=== PATIENT | male | born 1995 | race Caucasian/White ===

== ENCOUNTER 2019-10-13 17:12 | Inpatient (IN) | payer MEDICARE, MEDICAID ==
[~2019-10-13] VITALS: Ht 177.8 cm; Wt 98.8 kg
[2019-10-13 17:10] VITALS: BP 123/83
[~2019-10-13 17:12] MED LIST: DULO60CA7 PO; LORA-446 PO; TRAZ-175 PO
[2019-10-13] MEDS ORDERED: ENOXAPARIN 40 MG/0.4 ML SQ SCH (17:30)
[2019-10-13] MEDS ORDERED: ONDANSETRON 2MG/ML, 2ML IVPush PRN (17:30)
[2019-10-13] MEDS: SODIUM CHLORIDE 0.9% 1,000 ML IV SCH (17:51)
[2019-10-13] MEDS: ENOXAPARIN 40 MG/0.4 ML SQ SCH ×2 (17:53→17:55)
[2019-10-13 19:52] VITALS: BP_SYST 105; BP_SYST 97; BP_DIAS 65; BP_DIAS 68
[2019-10-14 00:33] VITALS: BP 114/71
[2019-10-14 00:52] LABS: AMPHETAMINE SCREEN, URINE Negative (Negative); BARBITURATE SCREEN, URINE Negative (Negative); BENZODIAZEPINE SCREEN, URINE Negative (Negative); CANNABINOID SCREEN, URINE Negative (Negative); COCAINE SCREEN, URINE Negative (Negative); METHADONE SCREEN, URINE Negative (Negative); OPIATE SCREEN, URINE Negative (Negative)
[2019-10-14 05:39] LABS: CHLORIDE 110 mmol/L (98-107)
[2019-10-14 05:44] LABS: BASOPHILS # (AUTO) 0.02 x10^3/uL (0-0.1); BASOPHILS % (AUTO) 0 % (0-1); EOSINOPHILS # (AUTO) 0.25 x10^3/uL (0-0.4); EOSINOPHILS % (AUTO) 2 % (1-7); LYMPHOCYTES # (AUTO) 2.31 x10^3/uL (1-3.4); LYMPHOCYTES % (AUTO) 22 % (22-44); MD NO; MEAN CORPUSCULAR HEMOGLOBIN 29.3 pg (27.5-34.5); MEAN CORPUSCULAR HGB CONC 34.1 g/dL (33.2-36.2); MEAN CORPUSCULAR VOLUME 85.9 fL (81-97); MEAN PLATELET VOLUME 8.8 fL (7.4-10.4); MONOCYTES # (AUTO) 1.03 x10^3/uL (0.2-0.8); MONOCYTES % (AUTO) 10 % (2-9); NEUTROPHILS # (AUTO) 6.76 x10^3/uL (1.8-6.8); NEUTROPHILS % (AUTO) 65 % (42-75); PLATELET COUNT 244 x10^3/uL (130-400); RED BLOOD COUNT 4.77 x10^6/uL (4.38-5.82); RED CELL DISTRIBUTION WIDTH 13.4 % (9.4-14.8)
[2019-10-14 05:49] LABS: ALANINE AMINOTRANSFERASE 37 U/L (12-78); ALBUMIN 3.5 g/dL (3.4-5.0); ALKALINE PHOSPHATASE 95 U/L (45-117); ANION GAP 4 mmol/L (5-15); BILIRUBIN,TOTAL 0.3 mg/dL (0.2-1.0); CALCIUM 8.8 mg/dL (8.5-10.1); CREATININE 1.48 mg/dL (0.7-1.3); TOTAL PROTEIN 6.6 g/dL (6.4-8.2)
[2019-10-14 06:45] VITALS: BP 98/59
[2019-10-14] MEDS: SODIUM CHLORIDE 0.9% 1,000 ML IV SCH ×3 (07:01→22:30)
[2019-10-14 13:30] VITALS: BP 119/72
[2019-10-14] MEDS ORDERED: TAMSULOSIN 0.4 MG CAP.ER.24H PO ONE (14:30)
[2019-10-14 22:31] VITALS: BP 124/73
[2019-10-15 01:43] VITALS: BP 125/74
[2019-10-15 06:29] LABS: BASOPHILS # (AUTO) 0.03 x10^3/uL (0-0.1); BASOPHILS % (AUTO) 0 % (0-1); EOSINOPHILS # (AUTO) 0.29 x10^3/uL (0-0.4); EOSINOPHILS % (AUTO) 4 % (1-7); LYMPHOCYTES # (AUTO) 2.22 x10^3/uL (1-3.4); LYMPHOCYTES % (AUTO) 27 % (22-44); MD NO; MEAN CORPUSCULAR HEMOGLOBIN 29.3 pg (27.5-34.5); MEAN CORPUSCULAR HGB CONC 34.1 g/dL (33.2-36.2); MEAN CORPUSCULAR VOLUME 85.9 fL (81-97); MEAN PLATELET VOLUME 8.2 fL (7.4-10.4); MONOCYTES # (AUTO) 0.84 x10^3/uL (0.2-0.8); MONOCYTES % (AUTO) 10 % (2-9); NEUTROPHILS # (AUTO) 4.99 x10^3/uL (1.8-6.8); NEUTROPHILS % (AUTO) 60 % (42-75); PLATELET COUNT 213 x10^3/uL (130-400); RED BLOOD COUNT 4.64 x10^6/uL (4.38-5.82); RED CELL DISTRIBUTION WIDTH 12.9 % (9.4-14.8)
[2019-10-15] MEDS: SODIUM CHLORIDE 0.9% 1,000 ML IV SCH ×3 (06:35→22:30)
[2019-10-15 06:39] LABS: ANION GAP 7 mmol/L (5-15); CALCIUM 8.7 mg/dL (8.5-10.1); CHLORIDE 110 mmol/L (98-107); CREATININE 1.09 mg/dL (0.7-1.3)
[2019-10-15 08:50] VITALS: BP 103/63
[2019-10-15] MEDS ORDERED: DULO60CA7 PO (11:12)
[2019-10-15] MEDS ORDERED: VENL150C PO (11:12)
[2019-10-15] MEDS ORDERED: BUPR300T49 PO (11:12)
[2019-10-15 12:15] VITALS: BP 123/70
[2019-10-15] MEDS: ENOXAPARIN 40 MG/0.4 ML SQ SCH (17:33)
[2019-10-15 19:10] VITALS: BP 132/84
[2019-10-16 00:09] VITALS: BP 125/77
[2019-10-16] MEDS: SODIUM CHLORIDE 0.9% 1,000 ML IV SCH (06:25)
[2019-10-16 08:44] VITALS: BP 126/76
[2019-10-16 14:30] VITALS: BP 122/76
[2019-10-16] MEDS: ENOXAPARIN 40 MG/0.4 ML SQ SCH (16:37)
[2019-10-16 19:08] VITALS: BP 150/90
[2019-10-17 15:25] VITALS: BP 109/64
[2019-10-17] MEDS: ENOXAPARIN 40 MG/0.4 ML SQ SCH ×2 (18:46→18:47)
[2019-10-17 20:04] VITALS: BP 136/88
[2019-10-18 01:38] VITALS: BP 106/64
[2019-10-18 08:08] VITALS: BP 122/65
== END 2019-10-18 12:00 | disposition home or self-care (01) | DRG 917 ==
LOC: 5SO 17:12 → 3N 10-15 17:45
PROVIDERS: ADMIT Internal Medicine Infectious Disease; ATTEND Internal Medicine Infectious Disease
DX: T50.912A Poisoning by multiple unspecified drugs, medicaments and biological substances, intentional self-harm, initial encounter (principal); N17.0 Acute kidney failure with tubular necrosis; F33.2 Major depressive disorder, recurrent severe without psychotic features; F43.10 Post-traumatic stress disorder, unspecified; Z88.2 Allergy status to sulfonamides; Z88.8 Allergy status to other drugs, medicaments and biological substances; Z91.013 Allergy to seafood; F14.90 Cocaine use, unspecified, uncomplicated; F17.210 Nicotine dependence, cigarettes, uncomplicated; F41.0 Panic disorder [episodic paroxysmal anxiety]; I51.7 Cardiomegaly; Z91.5 Personal history of self-harm; Y92.89 Other specified places as the place of occurrence of the external cause; T43.012A Poisoning by tricyclic antidepressants, intentional self-harm, initial encounter; T43.592A Poisoning by other antipsychotics and neuroleptics, intentional self-harm, initial encounter
CPT/HCPCS: 36415; 80048; 80053; 80307; 82140; 83735; 84100; 85025; 93005; G0378; J1650; J2405; J7030

== ENCOUNTER 2019-12-18 04:49 | Emergency (ER) | payer MEDICARE, MEDICAID ==
[~2019-12-18 04:49] MED LIST changes: +BUPR300T49 PO; +VENL150C PO
--- NOTE | 2019-12-18 05:05 | NUR ---
pt ambulates from triage to room with steady gait. pt belongings removed and pt stripped to underwear and changed into gown at this time. pt belongings placed into 1 of 1 bags and locked in secured storage. room secured for pt and staff safety at this time, with all suicide precautions in place. ELROY Warren at for pt history and assessment. pt educated on er process and poc and verbalizes understanding. pt instructed on need to void for ua/uds. pt cooperative at this time and verbalizes understanding of er expectations. sitter outside of room for direct observation of pt.
--- NOTE | 2019-12-18 05:16 | NUR ---
pt provided water per request. pt provided warm blanket.
--- NOTE | 2019-12-18 05:41 | NUR ---
pt provided urine sample at this time. urine labeled and tubed to lab.
[2019-12-18 05:47] LABS: BASOPHILS # (AUTO) 0.09 x10^3/uL (0-0.1); BASOPHILS % (AUTO) 1 % (0-1); EOSINOPHILS # (AUTO) 0.04 x10^3/uL (0-0.4); EOSINOPHILS % (AUTO) 0 % (1-7); LYMPHOCYTES # (AUTO) 2.31 x10^3/uL (1-3.4); LYMPHOCYTES % (AUTO) 23 % (22-44); MD NO; MEAN CORPUSCULAR HEMOGLOBIN 29.6 pg (27.5-34.5); MEAN CORPUSCULAR VOLUME 87.2 fL (81-97); MEAN PLATELET VOLUME 9.1 fL (7.4-10.4); MONOCYTES # (AUTO) 0.61 x10^3/uL (0.2-0.8); MONOCYTES % (AUTO) 6 % (2-9); NEUTROPHILS # (AUTO) 6.98 x10^3/uL (1.8-6.8); NEUTROPHILS % (AUTO) 70 % (42-75); PLATELET COUNT 239 x10^3/uL (130-400); RED BLOOD COUNT 5.23 x10^6/uL (4.38-5.82); RED CELL DISTRIBUTION WIDTH 13.7 % (9.4-14.8)
[2019-12-18 05:52] LABS: ALANINE AMINOTRANSFERASE 25 U/L (12-78); ALBUMIN 4.6 g/dL (3.4-5.0); ANION GAP 8 mmol/L (5-15); CALCIUM 8.9 mg/dL (8.5-10.1); CHLORIDE 111 mmol/L (98-107); CREATININE 1.14 mg/dL (0.7-1.3); SALICYLATE LEVEL 1.9 mg/dL (2.8-20.0)
[2019-12-18 06:02] LABS: ALKALINE PHOSPHATASE 110 U/L (45-117); BILIRUBIN,TOTAL 0.6 mg/dL (0.2-1.0); TOTAL PROTEIN 8.4 g/dL (6.4-8.2)
[2019-12-18 06:31] LABS: MICROSCOPIC NOT IND
[2019-12-18 06:34] LABS: CULTURE INDICATED? NO
[2019-12-18 06:42] LABS: AMPHETAMINE SCREEN, URINE Negative (Negative); BARBITURATE SCREEN, URINE Negative (Negative); BENZODIAZEPINE SCREEN, URINE Negative (Negative); CANNABINOID SCREEN, URINE Negative (Negative); COCAINE SCREEN, URINE Negative (Negative); METHADONE SCREEN, URINE Negative (Negative); OPIATE SCREEN, URINE Negative (Negative)
--- NOTE | 2019-12-18 07:03 | NUR ---
RECEIVED REPORT FROM ROXANNA QUAN. THIS RN TO ASSUME CARE. PT IN LAYING IN BED, RESPIRATIONS EVEN AND UNLABORED, EYES CLOSED, NO SIGNS OF DISTRESS. NO BELONGINGS IN THE ROOM, PT IN VIEW OF THE SITTER.
--- NOTE | 2019-12-18 07:16 | NUR ---
REPORT RECEIVED FROM NURIS MCKNIGHT.
--- NOTE | 2019-12-18 08:23 | NUR ---
pt still sleeping. meal tray provided at this time.
--- NOTE | 2019-12-18 09:29 | NUR ---
pt still sleeping. resps even and unlabored. sitter monitoring from hallway for safety. room remains secure.
--- NOTE | 2019-12-18 10:21 | NUR ---
pt still sleeping. resps even and unlabored. sitter monitoring from hallway for safety. room remains secure.
--- NOTE | 2019-12-18 11:02 | NUR ---
meal tray ordered at this time.
--- NOTE | 2019-12-18 11:45 | NUR ---
BREAK RN NOTE: PT SPEAKING WITH PSTJ PFEIFFER AT THIS TIME. PT CALM AND COOPERATIVE.
--- NOTE | 2019-12-18 12:00 | NUR ---
[facility] DECLINED PT
--- NOTE | 2019-12-18 12:01 | NUR ---
legal hold placed by ITZ Kuo, hospital bed requested from housekeeping. primary ROXANNA Ervin returned from meal break, report given back to ROXANNA Ervin.
--- NOTE | 2019-12-18 12:11 | NUR ---
[facility]
--- NOTE | 2019-12-18 12:31 | NUR ---
pt resting in [facility]. pt's aox4. resps even and unlabored. sitter monitoring from hallway for safety. room remains secure.
--- NOTE | 2019-12-18 12:49 | NUR ---
MEAL TRAY PROVIDED AT THIS TIME.
--- NOTE | 2019-12-18 13:27 | NUR ---
HOSPITAL BED IN ROOM NOW.
--- NOTE | 2019-12-18 14:06 | NUR ---
pt resting in hospital bed. resps even and unlabored. sitter monitoring from hallway for safety. room remains secure.
[2019-12-18] MEDS ORDERED: BUPR1FIL3 PO (14:29)
--- NOTE | 2019-12-18 14:38 | NUR ---
pt c/o muscle pain and requesting suboxon which is taken daily. edmd notified.
--- NOTE | 2019-12-18 15:12 | NUR ---
PT RESTING IN HOSPITAL BED. RESPS EVEN AND UNLABORED. SITTER MONITORING FROM HALLWAY FOR SAFETY. ROOM REMAINS SECURE.
--- NOTE | 2019-12-18 16:55 | NUR ---
PT RESTING IN HOSPITAL BED. RESPS EVEN AND UNLABORED. SITTER MONITORING FROM HALLWAY FOR SAFETY. ROOM REMAINS SECURE.
--- NOTE | 2019-12-18 17:53 | NUR ---
MEAL TRAY ORDERED AT THIS TIME.
--- NOTE | 2019-12-18 18:19 | NUR ---
MEAL TRAY PROVIDED AT THIS TIME.
--- NOTE | 2019-12-18 19:00 | NUR ---
REPORT GIVEN TO ISA MCKNIGHT.
--- NOTE | 2019-12-18 19:36 | NUR ---
PT RESTING CALMLY WATCHING TV, STATES HE CONTINUES TO HAVE SUICIDAL THOUGHTS AND PLAN IS TO SHOOT HIMSELF. PT DENIES NEEDS A THIS TIME, ROOM SECURED, SITTER AT DOORWAY FOR CONTINOUS MONITORING
[2019-12-18] MEDS ORDERED: TRAZODONE 50MG TABLET ONE (20:16)
--- NOTE | 2019-12-18 20:18 | NUR ---
PT REQUESTING TRAZADONE TO HELP HIM SLEEP, ERP UPDATED, ORDER RECEIVED AND PT MEDICATED PER MAR
[2019-12-18] MEDS ORDERED: TRAZODONE 50MG TABLET PO PRN (20:30)
--- NOTE | 2019-12-18 21:27 | NUR ---
pt resting on gurney, nad, respirations even and unlabored, denies needs, sitter at doorway for continous monitoring
--- NOTE | 2019-12-18 22:31 | NUR ---
PROVIDED PT SANDWICH, CHIPS AND DRINK PER HIS REQUEST, SI PRECAUTIONS MAINTAINED. SITTER AT DOORWAY FOR CONTINOUS MONITORING
--- NOTE | 2019-12-18 23:33 | NUR ---
pt resting calmly watching tv, denies needs, room secured, sitter at doorway for continous monitoring
--- NOTE | 2019-12-19 00:34 | NUR ---
Report from Clari MCKNIGHT.
--- NOTE | 2019-12-19 02:06 | NUR ---
TASK RN: PT ASLEEP IN [facility] AT THIS TIME; NADN. EQUAL BILATERAL RISE AND FALL OF CHEST OBSERVED. SITTER OUTSIDE OF PT ROOM FOR DIRECT OBSERATION AT THIS TIME.
--- NOTE | 2019-12-19 02:59 | NUR ---
PT SLEEPING IN NO ACUTE DISTRESS, EVEN AND UNLABORED RESPIRATIONS. SAFETY PRECAUTION IN PLACE. SITTER AT DOORWAY FOR MONITORING.
--- NOTE | 2019-12-19 03:55 | NUR ---
Patient has Medicare and unsure if packet was faxed to all appropriate psych facilities as not all were documented as being faxed and doctors clinical was not on the chart so refaxed packet to [facility], , [facility], and [facility]. Conformation received from all facilities.
--- NOTE | 2019-12-19 03:57 | NUR ---
CALL FROM RACHID AT [facility] FOR REPORT. PER RACHID, SHE WILL DISCUSS WITH AT [facility], SHE WILL RETURN CALL IF ACCEPTED AT THEIR FACILITY.
--- NOTE | 2019-12-19 04:12 | NUR ---
PT RESTING ON GURNEY, RESPIRATIONS EVEN AND UNLABORED. SAFETY PRECAUTIONS IN PLACE. SITTER AT DOORWAY FOR CONTINOUS MONITORING.
--- NOTE | 2019-12-19 05:11 | NUR ---
SLEEPING IN NO ACUTE DISTRESS, RESPIRATIONS ARE EVEN AND UNLABORED. SITTER AT DOORWAY FOR MONITORING.
--- NOTE | 2019-12-19 06:06 | NUR ---
PT SLEEPING NAD, EVEN AND UNLABORED RESPIRATIONS. SITTER AT DOORWAY FOR SAFETY MONITORING.
--- NOTE | 2019-12-19 07:00 | NUR ---
assumed care of pt. report from Bartolome MCKNIGHT. pt is here on Legal hold for SI. pt has hx of SA with OD of pills. per report pt has plan of getting a gun from his friend and shooting himself with it. pt is currently sleeping in position of comfort. lights dimmed. room secured. sitter present for safety. no apparent distress at this time. per reports pt has been cooperative. awaiting acceptance for mental health placement. will continue to monitor
--- NOTE | 2019-12-19 08:15 | NUR ---
meal tray delivered. pt re-assessment completed. pt calm and cooperative.
--- NOTE | 2019-12-19 08:55 | NUR ---
pt moved from room 1 to room 3 D/T maintenance needed in room 1. room secure. sitter present for safety
[2019-12-19] MEDS ORDERED: BUPRENORPHINE/NALOXONE 8-2MG SL SCH (09:00)
[2019-12-19 09:37] VITALS: BP 125/73
--- NOTE | 2019-12-19 09:37 | NUR ---
pt medicated per order. well tolerated. room secure. sitter present for safety. pt updated on POC
--- NOTE | 2019-12-19 10:00 | NUR ---
pt moved back to room 1 from room 2. maintenance completed. room secure. sitter present for asfety. escorted pt to BR per request. PO fluids given. pt calm and cooperative
--- NOTE | 2019-12-19 11:00 | NUR ---
no changes. pt resting in room watching TV. awaiting BOTTOM SCRUBBER to bedside for mental health eval. pt has no c/o at this time. calm and cooperative. room secure. sitter present for safety
--- NOTE | 2019-12-19 11:57 | NUR ---
no changes. pt taking PO fluids. waiting for evaluation by mental health DIRECTOR OF DEVELOPMENT AND MARKETING. room secure. sitter at bedside for safety. report to Kira MCKNIGHT
--- NOTE | 2019-12-19 12:15 | NUR ---
MARGARETTE MOBLEY REPORTS PT IS SAFE FOR DC AFTER MEDS. MED REQ FROM PHARMACY, PT IN SHOWER, LUNCH TRAY DELIVERED TO ROOM.
[2019-12-19] MEDS ORDERED: DULOXETINE 30 MG CAPSULE.DR PO ONE (12:30)
--- NOTE | 2019-12-19 12:51 | NUR ---
Patient given discharge instructions and they have confirmed that they understand the instructions. Patient ambulatory with steady gait.
[2019-12-19] MEDS ORDERED: PRAZOSIN 2 MG CAPSULE PO SCH (21:00)
== END 2019-12-19 12:52 | disposition home or self-care (01) ==
LOC: ED 06:05
DX: R45.851 Suicidal ideations (principal); F33.9 Major depressive disorder, recurrent, unspecified; R69 Illness, unspecified; Z88.2 Allergy status to sulfonamides
CPT/HCPCS: 36415; 80053; 80307; 81003; 84443; 85025; 99284; J0574

== ENCOUNTER 2021-03-05 21:09 | Observation (INO) | payer MEDICARE, MEDICAID ==
[~2021-03-05] VITALS: Ht 177.8 cm; Wt 69.7 kg
[~2021-03-05 21:09] MED LIST changes: +BUPR1FIL3 PO
--- NOTE | 2021-03-05 21:21 | NUR ---
pt presents to the ed after being released from [facility]. pt told criminal justice social worker he was feeling like he wanted to kill himself, the criminal justice social worker told pt to come to [facility] for evaluation. pt walked over from the snf. pt stated he wanted to either shoot himself or overdose on his sleeping medication. pt's belongings bagged up and placed in secure locker. pt's room secured and sitter at bedside. erp at bedside.
[2021-03-05] MEDS ORDERED: THIAMINE 100MG TABLET ONE (21:34)
[2021-03-05] MEDS ORDERED: LORazepam 1MG TABLET ONE (21:34)
[2021-03-05 21:51] LABS: AMPHETAMINE SCREEN, URINE Negative (Negative); BARBITURATE SCREEN, URINE Negative (Negative); BENZODIAZEPINE SCREEN, URINE Negative (Negative); CANNABINOID SCREEN, URINE Negative (Negative); COCAINE SCREEN, URINE Negative (Negative); METHADONE SCREEN, URINE Negative (Negative); OPIATE SCREEN, URINE Negative (Negative)
[2021-03-05] MEDS ORDERED: THIAMINE 100MG TABLET PO ONE (22:00)
[2021-03-05] MEDS ORDERED: LORazepam 1MG TABLET PO ONE (22:00)
[2021-03-05 22:02] LABS: BASOPHILS % (AUTO) 1 % (0-1); EOSINOPHILS % (AUTO) 1 % (1-7); LYMPHOCYTES % (AUTO) 25 % (22-44); MEAN CORPUSCULAR HEMOGLOBIN 30.6 pg (27.5-34.5); MEAN CORPUSCULAR HGB CONC 35.2 g/dL (33.2-36.2); MEAN PLATELET VOLUME 8.1 fL (7.4-10.4); MONOCYTES % (AUTO) 7 % (2-9); NEUTROPHILS % (AUTO) 67 % (42-75); PLATELET COUNT 321 x10^3/uL (130-400); RED BLOOD COUNT 4.93 x10^6/uL (4.38-5.82); RED CELL DISTRIBUTION WIDTH 14.9 % (9.4-14.8)
[2021-03-05 22:06] LABS: ALBUMIN 4.8 g/dL (3.4-5.0); ANION GAP 9 mmol/L (5-15); CALCIUM 9.5 mg/dL (8.5-10.1); CHLORIDE 106 mmol/L (98-107); SALICYLATE LEVEL 1.8 mg/dL (2.8-20.0)
[2021-03-05 22:09] LABS: ALANINE AMINOTRANSFERASE 31 U/L (12-78); ALKALINE PHOSPHATASE 113 U/L (45-117); BILIRUBIN,TOTAL 0.3 mg/dL (0.2-1.0); CREATININE 1.03 mg/dL (0.7-1.3); TOTAL PROTEIN 8.7 g/dL (6.4-8.2)
--- NOTE | 2021-03-05 22:09 | NUR ---
pt medicated and resting on gurney, denies needs at this time, sitter at bedside, room secured
--- NOTE | 2021-03-05 22:54 | NUR ---
Telepsych called and asked about pt. Telepsych talking with pt now.
--- NOTE | 2021-03-05 23:24 | NUR ---
PT DECLINED BY [facility] ON [facility]. PACKET FAXED TO ALL OTHER PSYCH FACILITIES.
--- NOTE | 2021-03-06 | NUR ---
pt resting on gurney, denies needs at this time, sitter at bedside, room secure.
--- NOTE | 2021-03-06 01:00 | NUR ---
pt placed on hospital bed, denies needs at this time, room secure, sitter at bedside.
--- NOTE | 2021-03-06 02:09 | NUR ---
pt resting on bed, denies needs at this time, sitter at bedside, room secured.
--- NOTE | 2021-03-06 02:30 | NUR ---
Mary le in [facility] - 03/07/21 at 0210 by LONDON pt restin in bed with eyes closed, sitter at bedsideJCARLOS
--- NOTE | 2021-03-06 03:02 | NUR ---
pt resting on bed, denies needs at this time, sitter at bedside, room secured.
--- NOTE | 2021-03-06 04:31 | NUR ---
pt resting on bed, denies needs at this time, sitter at bedside, room secured.
--- NOTE | 2021-03-06 05:00 | NUR ---
pt resting on bed, denies needs at this time, sitter at bedside, room secured.
--- NOTE | 2021-03-06 06:06 | NUR ---
pt resting on bed, denies needs at this time, sitter at bedside, room secured.
--- NOTE | 2021-03-06 06:55 | NUR ---
GAVE REPORT TO ROXANNA HEAD
[2021-03-06] MEDS ORDERED: LORazepam 1MG TABLET PO ONE (08:30)
[2021-03-06] MEDS ORDERED: LORazepam 1MG TABLET ONE (08:34)
--- NOTE | 2021-03-06 08:55 | NUR ---
PT BREAKFAST TRAY DELIVERED. PT STATES HE STILL HAS SUICIDAL THOUGHTS. VSS. PHYSCIAL AND SUICIDDAL REASSESSMENT COMPLETED. NAD. PT MEDICATED PER MAR FOR ANXIETY.
--- NOTE | 2021-03-06 08:55 | NUR ---
PT IN SECURED ROOM. SITTER OUTSIDE ROOM IN DIRECT LINE OF SIGHT.
[2021-03-06] MEDS ORDERED: LORazepam 0.5MG TABLET PO PRN (12:30)
[2021-03-06] MEDS ORDERED: QUETIAPINE 25MG TABLET PO PRN (12:30)
[2021-03-06] MEDS ORDERED: FLUOXETINE HCL 20 MG CAPSULE ONE (12:36)
--- NOTE | 2021-03-06 13:15 | NUR ---
ASSUMING CARE OF PT AT THIS TIME.
[2021-03-06] MEDS: FLUOXETINE HCL 20 MG CAPSULE PO SCH (13:19)
--- NOTE | 2021-03-06 13:45 | NUR ---
OFFERED PT SHOWER, PT AGREED. PT AMBULATED TO THE SHOWER ROOM W/ A STEADY GAIT, ASSISTED BY TAWNY SMALL.
--- NOTE | 2021-03-06 14:47 | NUR ---
THROUGHPUT TASK RN: WILNER FROM [facility] DECLINED PT.
--- NOTE | 2021-03-06 15:05 | NUR ---
BREAK RN: PT IN HOSPITAL BED, NAD NOTED. WATCHING TV. SITTER AT DOORWAY WITH PT IN VIEW. ROOM SECURE.
--- NOTE | 2021-03-06 15:09 | NUR ---
PER [facility]. PT WOULD BE SELF PAY
--- NOTE | 2021-03-06 15:58 | NUR ---
PT PROVIDED W/ YASEMIN CRACKERS AND PUDDING PER PT REQUEST. RESTING ON HOSPITAL BED W/ GARAGE DOORS DOWN X2 AND SITTER OUTSIDE ROOM FOR SAFETY. RESP EVEN AND UNLABORED, JCARLOS.
--- NOTE | 2021-03-06 17:05 | NUR ---
RESTING ON HOSPITAL BED W/ GARAGE DOORS DOWN X2 AND SITTER OUTSIDE ROOM FOR SAFETY. RESP EVEN AND UNLABORED, JCARLOS.
[2021-03-06] MEDS ORDERED: LORazepam 0.5MG TABLET ONE (17:57)
--- NOTE | 2021-03-06 18:04 | NUR ---
PT MEDICATED PER EMAR PER PT REQUEST. PT PROVIDED W/ DINNER TRAY AND W/ APPLE JUICE PER PT REQUEST.
--- NOTE | 2021-03-06 19:16 | NUR ---
Report from Kira MCKNIGHT
--- NOTE | 2021-03-06 20:05 | NUR ---
Mary le in ED - 03/06/21 at 2006 by LONDON Pt sitting in bed with grandma at bedside, sitter in view of ptJCARLOS
--- NOTE | 2021-03-06 20:07 | NUR ---
Pt provided water, sitter in view of JCARLOS morgan
--- NOTE | 2021-03-06 20:30 | NUR ---
pt resting in bed with eyes closed, sitter in sight of pt, JCARLOS
--- NOTE | 2021-03-06 20:55 | NUR ---
pt provided sandwhich and water per request
[2021-03-06] MEDS ORDERED: TRAZODONE 100MG TABLET PO PRN (21:00)
[2021-03-06] MEDS ORDERED: QUETIAPINE 25MG TABLET ONE (23:04)
[2021-03-06] MEDS ORDERED: TRAZODONE 100MG TABLET ONE (23:04)
--- NOTE | 2021-03-06 23:06 | NUR ---
Pt resting in bed with eyes closed, NADN
--- NOTE | 2021-03-07 01:28 | NUR ---
pt continues to rest in bed with eyes closed, sitter in view of pt
[2021-03-07] MEDS ORDERED: TRAZODONE 100MG TABLET ONE (02:15)
--- NOTE | 2021-03-07 03:33 | NUR ---
pt still resting in bed vwith eyes closed, even and symmetrical chest rise, sitter in view of pt
--- NOTE | 2021-03-07 04:30 | NUR ---
pt ambulatory with steady gait to restroom
--- NOTE | 2021-03-07 05:50 | NUR ---
Pt resting with eyes closed, sitter in view of pt
--- NOTE | 2021-03-07 07:05 | NUR ---
PT RESTING CALMLY IN BED WITH EYES CLOSED. WILL CONTINUE TO MONITOR. SITTER AT DOOR FOR FREQUENT OBS.
[2021-03-07] MEDS ORDERED: FLUOXETINE HCL 20 MG CAPSULE ONE (08:21)
[2021-03-07] MEDS: FLUOXETINE HCL 20 MG CAPSULE PO SCH (08:39)
--- NOTE | 2021-03-07 08:42 | NUR ---
PT AWAKE, CALM. BREAKFAST TRAY GIVEN. PT COOPERATIVE WITH AM MEDS. VITALS DONE, SEE CHARTED. PT ASKING TO SEE THE PSYCH DOC THIS AM TO DISCUSS MEDS AND BEING DCd. PT ROOM SECURE. TRASH REMOVED. WILL CONTIUE TO MONITOR. SITTER AT DOOR FOR OBS.
[2021-03-07 08:49] VITALS: BP 129/77
--- NOTE | 2021-03-07 09:43 | NUR ---
PT RESTING CALMLY IN BED AT THIS TIME. NO STATED NEEDS. SITTER AT DOOR.
--- NOTE | 2021-03-07 10:09 | NUR ---
PT RESTING CALMLY IN BED. NO STATED NEEDS. SITTER AT DOOR.
--- NOTE | 2021-03-07 11:07 | NUR ---
PT RESTING CALMLY IN BED WITH EYES CLOSED. NO STATED NEEDS AT THIS TIME. SITTER AT DOOR FOR OBS.
--- NOTE | 2021-03-07 12:21 | NUR ---
JPT RESTING CALMLY IN BED AT THIS TIME. SITTER AT DOOR.
--- NOTE | 2021-03-07 14:40 | NUR ---
TASK RN: PT VERBALIZED UNDERSTANDING OF DC INSTRUCTIONS, PROVIDED W/ TAXI VOUCHER PER SAFE DC PLAN. PT AMBULATORY W/ A STEADY GAIT. RESP EVEN AND UNLABORED, NADN.
== END 2021-03-07 14:52 | disposition home or self-care (01) ==
LOC: ED 23:21 → EDIP 23:45
PROVIDERS: ADMIT Emergency Medicine; ATTEND Emergency Medicine
DX: F33.2 Major depressive disorder, recurrent severe without psychotic features (principal); F41.1 Generalized anxiety disorder; R45.851 Suicidal ideations; F12.90 Cannabis use, unspecified, uncomplicated; F17.200 Nicotine dependence, unspecified, uncomplicated; F43.10 Post-traumatic stress disorder, unspecified; Z79.899 Other long term (current) drug therapy
CPT/HCPCS: 36415; 80053; 80299; 80307; 80320; 80329; 85025; 99284; G0378; G0480